=== PATIENT | male | born 1950 | race Caucasian/White ===

== ENCOUNTER 2017-02-11 05:55 | Day surgery (SDC) | payer BC ==
[~2017-02-11] VITALS: Ht 185.6 cm; Wt 92.7 kg
[2017-02-11] VITALS (645 sets, daily range): BP systolic 94–139; BP diastolic 67–88; PULSE 49–65; TEMP 96.9–98.6; O2SAT 89–100
[~2017-02-11 05:55] MED LIST: ASPIRIN 32325 MG/TAB PO; BETAPACE 80MG80 MG PO; CALCIUM 600/VIT1 CAP PO; COMPLETE SENIOR1 TA1 PO; HCTZ 25MG TAB25 MG PO; LIPITOR 40MG TA40 MG PO; NORCO 325 MG-7.1 TAB PO; OMEGA KRILL OIL PO; SYNTHROID0.05 MG/TA PO; calcium PO
[2017-02-11 07:05] LABS: HEMATOCRIT 42.8 % (42.0-52.0); HEMOGLOBIN 14.6 g/dl (13.5-18.0); MEAN CELL VOLUME 93 fl (80.0-100.0); MEAN CORPUSCULAR HEMOGLOBIN 32 pg (27.0-31.0); MEAN CORPUSCULAR HGB CONC 34 g/dl (33.0-37.0); MEAN PLATELET VOLUME 11.5 fl (7.4-10.4); PLATELET COUNT 147 K/mm3 (130-400); REDCELL DISTRIBUTION WIDTH-CV 11.9 % (11.5-14.5); WHITE BLOOD COUNT 6.6 K/mm3 (4.8-10.8)
[2017-02-11 07:23] LABS: CALCIUM 9.3 mg/dL (8.4-10.2); CREATININE, serum 0.86 mg/dL (0.66-1.25); POTASSIUM 4.1 mmol/L (3.4-5.0)
[2017-02-11] MEDS ORDERED: SYNTHROID0.05 MG/TA PO (07:44)
[2017-02-11] MEDS ORDERED: BETAPACE 80MG80 MG PO (07:45)
[2017-02-11] MEDS ORDERED: LIPITOR 40MG TA40 MG PO (07:45)
[2017-02-11] MEDS ORDERED: IMDUR 30MG30 MG/TAB PO (07:46)
[2017-02-11] MEDS ORDERED: HCTZ 25MG TAB25 MG PO (07:46)
[2017-02-11] MEDS ORDERED: ASPIRIN E.C. 8181 MG PO (11:33)
[2017-02-11] MEDS ORDERED: LIPITOR 80MG80 MG PO (11:33)
[2017-02-11] MEDS ORDERED: BRILINTA90 MG PO (11:35)
[2017-02-12] VITALS (510 sets, daily range): BP systolic 118–136; BP diastolic 77–94; PULSE 52–59; TEMP 97.9–98; O2SAT 88–99
[2017-02-12 05:57] LABS: BASO % 0.3 % (0.0-2.0); EOS # 0.3 (0.0-0.7); EOS % 2.8 % (0-4.0); GRAN # 6.1 (1.4-6.5); HEMATOCRIT 45.7 % (42.0-52.0); HEMOGLOBIN 15.3 g/dl (13.5-18.0); LYMPH # 1.4 (1.2-3.4); LYMPH % 15.9 % (20.0-51.0); MEAN CELL VOLUME 94 fl (80.0-100.0); MEAN CORPUSCULAR HEMOGLOBIN 31 pg (27.0-31.0); MEAN CORPUSCULAR HGB CONC 34 g/dl (33.0-37.0); MEAN PLATELET VOLUME 11.8 fl (7.4-10.4); MONO % 11.3 % (1.7-9.3); PLATELET COUNT 152 K/mm3 (130-400); RED BLOOD COUNT 4.88 M/mm3 (4.20-5.60); REDCELL DISTRIBUTION WIDTH-CV 11.8 % (11.5-14.5); WHITE BLOOD COUNT 8.8 K/mm3 (4.8-10.8)
[2017-02-12 06:09] LABS: CALCIUM 9.2 mg/dL (8.4-10.2); CREATININE, serum 0.96 mg/dL (0.66-1.25); POTASSIUM 3.9 mmol/L (3.4-5.0)
[2017-02-12] MEDS ORDERED: OMEGA-3 FISH1000 MG PO (07:59)
[2017-02-12] MEDS ORDERED: FISH OIL 500 M1 EAC1 PO (08:00)
== END 2017-02-12 11:30 | disposition home or self-care (01) ==
LOC: COL.CAR 05:55 → ICU 10:30 → COL.CAR 02-12 11:30
PROVIDERS: Internal Medicine Cardiovascular Disease
DX: I25.110 Atherosclerotic heart disease of native coronary artery with unstable angina pectoris (principal); I10 Essential (primary) hypertension; I07.1 Rheumatic tricuspid insufficiency; I34.0 Nonrheumatic mitral (valve) insufficiency; E78.5 Hyperlipidemia, unspecified; G47.33 Obstructive sleep apnea (adult) (pediatric); I48.0 Paroxysmal atrial fibrillation; Z82.49 Family history of ischemic heart disease and other diseases of the circulatory system
CPT/HCPCS: OP; C1725; C1757; C1760; C1769; C1874; C1887; C1894; C9600; J0583; J2250; J3010; Q9967

== ENCOUNTER 2020-03-14 10:29 | Inpatient (IN) | payer MEDICARE, BC ==
[~2020-03-14] VITALS: Ht 185.4 cm; Wt 92.9 kg
[~2020-03-14 10:29] MED LIST changes: +ASPIRIN E.C. 8181 MG PO; +BRILINTA90 MG PO; +FISH OIL 500 M1 EAC1 PO; +IMDUR 30MG30 MG/TAB PO; +LIPITOR 80MG80 MG PO; +OMEGA-3 FISH1000 MG PO
[2020-04-07 10:48] LABS: ALBUMIN 4.6 gm/dL (3.5-5.0); BILIRUBIN,TOTAL 1.1 mg/dL (0.0-1.0); CALCIUM 9.6 mg/dL (8.4-10.2); CREATININE, serum 0.98 (0.66-1.25); HEMATOCRIT 47.8 % (42.0-52.0); HEMOGLOBIN 15.8 g/dl (13.5-18.0); MEAN CELL VOLUME 96 fl (80.0-100.0); MEAN CORPUSCULAR HEMOGLOBIN 32 pg (27.0-31.0); MEAN CORPUSCULAR HGB CONC 33 g/dl (33.0-37.0); MEAN PLATELET VOLUME 11.2 fl (7.4-10.4); PLATELET COUNT 162 K/mm3 (130-400); POTASSIUM 4.1 mmol/L (3.4-5.0); RED BLOOD COUNT 4.98 M/mm3 (4.20-5.60); TOTAL PROTEIN 7.9 gm/dL (6.4-8.2)
[2020-04-08] VITALS (11 sets, daily range): BP systolic 104–143; BP diastolic 67–92; PULSE 47–62; TEMP 97.2–98.5
[2020-04-08] MEDS ORDERED: SYNTHROID0.05 MG/TA PO (08:35)
[2020-04-08] MEDS ORDERED: BETAPACE 80MG80 MG PO (08:36)
[2020-04-08] MEDS ORDERED: CALCIUM 600MG+D1 TAB PO (08:36)
[2020-04-08] MEDS ORDERED: ASPIRIN 81M81 MG/TA2 PO (08:36)
[2020-04-08] MEDS ORDERED: HCTZ 25MG TAB25 MG PO (08:37)
[2020-04-08] MEDS ORDERED: KRILL OIL 5001 EACH PO (08:37)
[2020-04-08] MEDS ORDERED: ONE-A-DAY ESSE1 EACH PO (08:37)
[2020-04-08] MEDS ORDERED: LIPITOR 80MG80 MG PO (08:37)
--- NOTE | 2020-04-08 08:38 | NUR ---
Patient arrives to [facility] [place] [facility] for pre-op admission. He ambulates independently with steady gait. He is alert and oriented. Procedure is confirmed. He denies any questions and verbalizes understanding. VSS and WNL on room air. He took his beta brittnee (Sotalol 80 mg) this AM at 0630. No aspirin 81 mg for 7 days. Breath sounds clear bilaterally to auscultation. Clear S1S2 heart tones with regular rate noted. History of a-fib. Denies numbness/tingling/pain. PERRLA. Call light usage taught and within reach.
[2020-04-08 08:59] LABS: BASO # 0.1 (0.0-0.2); BASO % 0.7 % (0.0-2.0); EOS # 0.5 (0.0-0.7); EOS % 6.5 % (0-4.0); GRAN # 4.2 (1.4-6.5); GRAN % 59.4 % (42.2-75.2); HEMATOCRIT 48.9 % (42.0-52.0); HEMOGLOBIN 16.5 g/dl (13.5-18.0); LYMPH # 1.5 (1.2-3.4); LYMPH % 21.1 % (20.0-51.0); MEAN CELL VOLUME 94 fl (80.0-100.0); MEAN CORPUSCULAR HEMOGLOBIN 32 pg (27.0-31.0); MEAN CORPUSCULAR HGB CONC 34 g/dl (33.0-37.0); MEAN PLATELET VOLUME 10.9 fl (7.4-10.4); MONO # 0.8 (0.1-0.6); MONO % 11.9 % (1.7-9.3); PLATELET COUNT 169 K/mm3 (130-400); RED BLOOD COUNT 5.22 M/mm3 (4.20-5.60); REDCELL DISTRIBUTION WIDTH-CV 11.9 % (11.5-14.5)
[2020-04-08 09:13] LABS: ALBUMIN 4.6 gm/dL (3.5-5.0); BILIRUBIN,TOTAL 1.5 mg/dL (0.0-1.0); CALCIUM 9.7 mg/dL (8.4-10.2); CREATININE, serum 0.85 (0.66-1.25); POTASSIUM 3.8 mmol/L (3.4-5.0); TOTAL PROTEIN 8.3 gm/dL (6.4-8.2)
--- NOTE | 2020-04-08 19:05 | NUR ---
Patient arrived to floor from PACU via bed at approximately 1630. Patient was sleepy but roused easily, was oriented and appropriate while awake. Post op checks initiated. Patient denies pain or needs at this time, tolerating PO intake well. Call light within reach.
--- NOTE | 2020-04-08 19:52 | NUR ---
Resting in bed. Assessment complete. Lungs clear. Heart sounds normal. Bowels active x4. Pulses present throughout. No edema noted at this time. IV left forearm infusing without complications. DANIEL drain to bulb suction. 30 ml of bloody drainage out. DANIEL site dressing completely saturated. Dressing changed at this time. x5 lap sites CDI. Reports 3/10 pain. Tylenol due at 2130. Denies other needs at this time. Will monitor.
--- NOTE | 2020-04-08 20:30 | NUR ---
Ambulating in hallways. Tolerated well.
--- NOTE | 2020-04-08 23:50 | NUR ---
Resting in bed. Reports 5/10 ABD pain. Given scheduled toradol. Educated patient to report if no pain relief. Denies other needs at this time. Call light in reach.
--- NOTE | 2020-04-09 00:46 | NUR ---
Reported 7/10 ABD pain. Given PRN tramadol and ambulated. Denies other needs at this time. Call light in reach.
--- NOTE | 2020-04-09 01:52 | NUR ---
Resting in bed. Denies needs. Call light in reach.
--- NOTE | 2020-04-09 03:26 | NUR ---
Resting in bed. Denies pain. Denies needs. DANIEL to bulb suction. Dressing CDI. Call light in reach.
[2020-04-09 03:48] VITALS: BP 107/68; PULSE 52; TEMP 97.7
--- NOTE | 2020-04-09 06:17 | NUR ---
Patient required x1 dose of tramadol for pain control throughout night. Ambulated in hallways. DANIEL drain to bulb suction with bloody drainage present. Otherwise uneventful night. Resting in bed this AM. Call light in reach.
[2020-04-09 06:22] LABS: HEMATOCRIT 43.4 % (42.0-52.0)
[2020-04-09 06:29] LABS: HEMOGLOBIN 14.4 g/dl (13.5-18.0)
[2020-04-09 06:54] LABS: CALCIUM 8.8 mg/dL (8.4-10.2); CREATININE, serum 0.97 (0.66-1.25); POTASSIUM 3.9 mmol/L (3.4-5.0)
--- NOTE | 2020-04-09 07:15 | NUR ---
Report given to ENRIQUE Curran
[2020-04-09 07:36] VITALS: BP 109/65; PULSE 52; TEMP 98.6
--- NOTE | 2020-04-09 08:31 | NUR ---
CANDIDO Fierro here to see patient.
--- NOTE | 2020-04-09 09:14 | NUR ---
Initial visit; Patient thanked [employer] for stopping by and offering God's blessings.
--- NOTE | 2020-04-09 09:15 | NUR ---
Patient alert and oriented, answers questions appropriately. See assessment. Abdomen soft, non tender, non distended. Bowel sounds active x4 quads. No flatus or bm yet. Lap sites with edges well approximated, no redness or drainage noted. DANIEL drain in place to LLQ, scant amount serosanguinous drainage noted. Pritchett catheter in place, patent, draining clear yellow urine. ERAS protocol reviewed with patient. No c/o at this time.
--- NOTE | 2020-04-09 11:01 | NUR ---
Dr Cohen here to see patient.
--- NOTE | 2020-04-09 11:05 | NUR ---
DANII met with the patient to discuss discharge plan. The patient lives alone in [place]. He reports that his two sons: Igor and Kei also live in [place]. He reports independence with ADLs and has a cane, chair lift, and stool riser. The patient's PCP is Dr. Ariel Jhaveri and he receives his medications at [facility]. He reports no difficulties obtaining his meds. The patient's Living Will is in his chart. The patient plans to return home upon discharge. He states that his daugherCami (ph#[phone]), plans to stay with him for a few days when he returns home. No additional needs at this time.
[2020-04-09 11:19] VITALS: BP 113/71; PULSE 52; TEMP 98.7
--- NOTE | 2020-04-09 12:48 | NUR ---
DANIEL drain removed per drs order.
--- NOTE | 2020-04-09 14:16 | NUR ---
Discharge instructions reveiwed with patient, verbalized understanding. Pritchett catheter reviewed with return demonstration. Discharged ambulatory to auto/home with family at 1325.
== END 2020-04-09 13:25 | disposition home or self-care (01) | DRG 708 ==
LOC: INPTSU 04-08 07:58 → SURG 04-08 10:45
PROVIDERS: ADMIT Urology
PROC: 07BC4ZZ Excision of Pelvis Lymphatic, Percutaneous Endoscopic Approach (ICD-10-PCS; 2020-04-08)
PROC: 8E0W4CZ Robotic Assisted Procedure of Trunk Region, Percutaneous Endoscopic Approach (ICD-10-PCS; 2020-04-08)
PROC: 0VT04ZZ Resection of Prostate, Percutaneous Endoscopic Approach (ICD-10-PCS; principal; 2020-04-08 10:45)
DX: C61 Malignant neoplasm of prostate (principal)
CPT/HCPCS: A4314; J0690; J1100; J1170; J1885; J2405; J2704; J3010; J7120